=== PATIENT | female | born 1985 | race Caucasian/White ===

== ENCOUNTER → 2021-05-29 | Outpatient (CLI) | payer BC ==
[2021-05-29 15:54] LABS: HEMOGLOBIN 11.4 gm/dl (12.3-15.3); RED BLOOD COUNT 3.79 M/UL (4.00-5.10); WHITE BLOOD COUNT 8.4 K/UL (4.5-11.0)
[2021-05-29 16:09] LABS: BUN/CREATININE RATIO 10 (0-10)
== END ==
LOC: LAB 14:52
PROVIDERS: Internal Medicine
DX: R76.8 Other specified abnormal immunological findings in serum (principal); M25.50 Pain in unspecified joint; E83.119 Hemochromatosis, unspecified; D72.829 Elevated white blood cell count, unspecified
CPT/HCPCS: 36415; 73130; 80053; 82728; 83520; 85025